=== PATIENT | female | born 1965 | race Caucasian/White ===

== ENCOUNTER 2025-04-04 14:06 | Emergency (ER) | payer BC, SELFPAY ==
[2025-04-04] VITALS (14 sets, daily range): BP systolic 126–159; BP diastolic 64–110; PULSE 85–112; BMI 32.4
[2025-04-04 14:54] LABS: Hematocrit 39.9 % (37.0-47.0); Hemoglobin 13.5 g/dL (12.0-16.0); Mean Corp Hgb Conc. 33.8 g/dL (33.0-37.0); Mean Corpuscular Volume 88.3 fL (81.0-99.0); Nucleated Red Blood Cells % 0 %; Platelet Count 257 10^3/uL (130-400); Red Cell Dist. Width 13.5 % (11.5-14.5)
[2025-04-04 15:14] LABS: ALT (SGPT) 22 U/L (0-35); AST (SGOT) 23 U/L (14-36); Albumin 4.8 g/dl (3.5-5.0); Alkaline Phosphatase 40 U/L (38-126); Blood Urea Nitrogen 17 mg/dl (7-17); Calcium 9.8 mg/dl (8.4-10.2); Carbon Dioxide 24 mmol/L (22-30); Chloride 105 mmol/L (98-107); Glucose 106 mg/dl (70-99); Potassium 4.2 mmol/L (3.5-5.1); Sodium 134 mmol/L (135-145); Total Protein 7.3 g/dl (6.3-8.2); eGFR > 60.00
[2025-04-04 15:19] LABS: Troponin I < 0.012 ng/ml
[2025-04-04 15:31] LABS: Magnesium 1.9 mg/dl (1.6-2.3)
--- NOTE | 2025-04-04 16:20 | ED.GENMED ---
History of Present Illness
General
Chief Complaint: Cardiac Symptoms
Source: patient
Exam Limitations: none
Time Seen by Provider: 04/04/25 15:13
Nursing documentation reviewed up to this point in time: agreed with
History of Present Illness
History of Present Illness:
Patient presents to ED secondary to 2-day history of chest pain, palpitations ('fluttering sensation'), dizziness, and shortness of breath, shortly after waking up yesterday morning. Patient was able to go to the pool and participated in physical
therapy for her back pain, but her symptoms have continued. When she got up this morning, while she was at work, she developed right-sided chest pain which has persisted along with shortness of breath and dizziness. Denies fever or chills. Denies
nausea, vomiting, or diarrhea. Denies trauma. Denies leg pain or swelling. Denies recent illness. Denies recent travel or surgery. Denies previous history of similar symptoms. Denies recent change in diet or medications. There is no family
history of blood clots, although her mother developed pulmonary embolism due to breast cancer.
Past History
Past History
ED Past Medical History: Other (GERD, osteoarthritis, chronic back pain)
ED Past Surgical History: Gynecological and Orthopedic (Lumbar decompression w/ hardware)
Social History
Tobacco: Non-smoker
Review of Systems
Review of Systems
Allergies reviewed?: Yes
All Other Systems: ROS reviewed and negative except as documented in HPI and ROS
Constitutional: Reports no symptoms
Respiratory: Reports trouble breathing
Cardiac: Reports chest pain and palpitations
ABD/GI: Reports nausea
: Reports frequency
Musculoskeletal: Reports no symptoms
Skin: Reports no symptoms
Neurological: Reports dizzy; Denies headache or weakness
Phy Exam
Physical Exam
Physical Exam:
General: well nourished female, in mild distress. afebrile
Heent: nc/at. eomi
Lung: CTA. chest wall nontender to palpation
Heart: rrr. systolic ejection murmur
Abd: soft and nontender
Ext: no edema
Neuro: aao x 3. no focal neurological deficit
Skin: no rash
Psych: pleasant and cooperative
Course
Orders/Labs/Results
Orders:
Orders
04/04/25 14:08
EKG [Electrocardiogram (*1)] Urgent
Reason for Study: Palpitations
EKG- Treatment ONCE
04/04/25 14:46
Complete Blood Count/With Diff Urgent
Comprehensive Metabolic Panel Urgent
Magnesium Urgent
Comment: ADD ON
TSH Reflex To Free T4 Urgent
Comment: ADD ON
Troponin I Urgent
04/04/25 15:14
Add On- LAB Urgent
Tests Added?: magnesium, TSH to reflex Free T4, lipase
04/04/25 15:20
Orthostatic VS- Treatment ONCE
04/04/25 16:24
0.9% Sodium Chloride 500 ml [Nss] 500 ml IV BOLUS
04/04/25 16:27
D-Dimer Urgent
Urinalysis Reflex To Culture Urgent
Date Specimen was Collected: 04/04/25
Time Specimen was Collected: 16:26
04/04/25 17:48
CT Chest PE Study Urgent
Comment:
Reason For Exam: right sided CP with elevated d-dimer
04/04/25 19:47
0.9% Sodium Chloride 500 ml [Nss] 500 ml IV BOLUS
04/04/25 20:13
Troponin I Urgent
Abnormal Lab Results
04/04/25 04/04/25
14:46 16:27
D-Dimer 1.33 H ug/mlFEU
(0.00-0.50)
Sodium 134 L mmol/L
(135-145)
Glucose 106 H mg/dl
(70-99)
04/04/25 14:46
04/04/25 14:46
Vital Signs
Initial and Last Documented VS:
Initial Vital Signs
Temp Pulse Resp BP Pulse Ox
98.4 F 97 18 159/100 98
04/04/25 14:31 04/04/25 14:31 04/04/25 14:31 04/04/25 14:31 04/04/25 14:31
Last Documented Vital Signs
Temp Pulse Resp BP Pulse Ox
98.3 F 90 18 149/94 96
04/04/25 17:32 04/04/25 21:05 04/04/25 21:00 04/04/25 21:32 04/04/25 21:00
MDM/Problems Addressed
MDM/Problems Addressed:
Patient with an unremarkable workup in ED, including blood work and CT angiogram, obtained secondary to right-sided chest pain along with elevated D-dimer. Patient with continual intermittent PVCs noted on the monitor, which may be contributing to
patient's presenting symptoms, as well as nonspecific GI symptoms that she has been experiencing for a number of weeks. As such, patient will be discharged home with recommendation to follow-up with her seam steamer, as well as referred GI
physician, for potential endoscopy, as an outpatient. In the meantime, patient will continue to take PPI as an outpatient.
*Pulse Oximetry
SaO2: 98
Oxygen Mode of Delivery: Room air
Patient hypoxic: no
*EKG
Interpreted by ED Provider?: Yes
EKG Intrepretation Date: 04/04/25
Heart Rate: 90
Rate: normal
Rhythm: PVC's
[place]: normal axis
Interval: normal interval
*Critical Care Note
Total Time (30-74mins, 75-104mins- exclusive of procedures): Not Applicable
ED Attending Note
-
Portions of this chart may have been created with voice recognition software.� Occasional wrong word or��sound alike� substitutions may have occurred due to the inherent limitations of voice recognition software.
Discharge Plan
Departure
Patient Disposition: Home (Routine Discharge)
Date of Disposition: 04/04/25
Time of Disposition: 21:07
Patient with high blood pressure during this ER visit?: Yes
Condition: Good
Discharge Problem:
Chest pain, Premature complex, ventricular
Instructions: Chest Pain NON-DHP Multicraft Operator Follow Up, Premature Ventricular Contraction
Prescriptions:
No Action
multivitamin [Multi-Day] 1 EACH tablet
1 ea PO DAILY
sennosides-docusate sodium [Stool Softener-Stimulant Laxat] 1 EACH tablet
1 ea PO PRN PRN (Reason: constipation)
lansoprazole 30 MG capsule,delayed release(DR/EC)
30 mg PO BID
aspirin 81 MG tablet,chewable
81 mg PO DAILY
vitamin B complex 1 TAB tablet
1 tab PO DAILY
naproxen 500 MG tablet
500 mg PO BID
metaxalone [Skelaxin] 800 MG tablet
800 mg PO BID
coenzyme A21-dwkhelj E [Co Q-10 (with Vit E)] 1 EACH capsule
1 ea PO DAILY
hydrocodone-acetaminophen 1 EACH tablet
1 ea PO PRN PRN (Reason: pain)
flaxseed oil-omega 3,6,9 1 EACH capsule
1 ea PO DAILY
L.acidoph,paracasei,B.animalis 1 EACH capsule
1 ea PO DAILY
lz-4-xvv-epa-fish oil-vit D3 [[place]-3 Plus Vitamin D3] 1 EACH capsule
2 ea PO DAILY
ergocalciferol (vitamin D2) 400 UNIT tablet
400 unit PO Daily
ascorbate calcium (vitamin C) 500 MG tablet
500 mg PO Daily
mktzxfhmyby-ikjqehnal-ac-min3 [Glucoten] 1 EACH tablet
2 tab PO Daily
psyllium seed (sugar) [Metamucil [place]] 575 GM powder
1 dose PO Daily PRN (Reason: constipation)
hydromorphone 2 MG tablet
2 mg PO Q4HPRN PRN (Reason: moderate pain) Qty: 20 0RF
cephalexin 500 MG capsule
500 mg PO QID Qty: 28 0RF
Referrals:
Emerson Guzman MD [Family Provider, Internal Medicine]
Alvina Byrd DO [Active, Gastroenterology]
Activity Restrictions/Additional Instructions:
As discussed, please follow-up with your primary care physician, as well as seam steamer and/or referred GI physician for reevaluation.
Interventions
Interventions:
*Risk Screen - Suicide Last Done: 04/04/25 14:31
*General Assessment Last Done: 04/04/25 14:31
*Neglect/Abuse Screening Last Done: 04/04/25 14:31
*ED- Fall Risk Assessment Last Done: 04/04/25 16:28
*ED COVID-19 Vaccine History Last Done: 04/04/25 16:28
*Nursing Disposition Last Done: 04/04/25 21:35
ED- Pulmonary Assessment Last Done: 04/04/25 16:28
ED- Cardiac Assessment Last Done: 04/04/25 16:28
Discharge Date and Time
Discharge Date/Time: 04/04/25 21:35
Print Language: ARMENIAN
[2025-04-04] MEDS: NSS 500 IV ×2 (16:56→20:18)
[2025-04-04 17:11] LABS: Urine Character Clear (Clear)
[2025-04-04 17:17] LABS: D-Dimer 1.33 ug/mlFEU (0.00-0.50)
[2025-04-04 20:56] LABS: Troponin I < 0.012 ng/ml
== END 2025-04-04 21:35 | disposition home or self-care (01) ==
LOC: EMR 14:06
PROVIDERS: Emergency Medicine; EMERGENCY PHYSICIAN Emergency Medicine; FAMILY PHYSICIAN Internal Medicine
DX: R07.89 Other chest pain (principal); I49.3 Ventricular premature depolarization; R03.0 Elevated blood-pressure reading, without diagnosis of hypertension
CPT/HCPCS: 99285; 96360; 96361; 71275; 80053; 81003; 83735; 84443; 84484; 85025; 85379; 93005; Q9967